=== PATIENT | female | born 1980 | race Caucasian/White ===

== ENCOUNTER 2024-06-24 08:35 | Day surgery (SDC) | payer OTHER ==
[~2024-06-24] VITALS: Ht 172.7 cm; Wt 65.8 kg
[2024-06-24] MEDS ORDERED: ALBU90OI INH (08:50)
[2024-06-24] MEDS ORDERED: FLUT1DIS8 INH (08:51)
[2024-06-24] MEDS ORDERED: TIOT18 INH (08:52)
[2024-06-24 09:05] VITALS: BP 129/102
--- NOTE | 2024-06-24 09:07 | NUR ---
TIMEOUT 0909 W/ DRY NANETTE PROCEDURE START 909 LOCAL ANESTHETIC PROCEDURE END 927 OUTPUT 650ML
[2024-06-24 10:12] LABS: Automated BF RBC Count 0.008 M/mm3 (0-0); Automated BF WBC Count 2.838 K/mm3 (0-999)
--- NOTE | 2024-06-24 10:18 | NUR ---
Discharge instructions reviewed with patient. Patient verbalizes understanding. Copy given to patient to take home.
[2024-06-24 10:31] LABS: Body Fluid WBC Count 2838 /mm3 (0-999); RBC Count, Body Fluid 8000 /mm3 (0-0)
[2024-06-24 10:37] LABS: Glucose, Body Fluid 161 mg/dL
[2024-06-24 11:31] LABS: Lactate Dehydrogenase, Body Fl 95 U/L; Protein, Body Fluid 3.9 g/dL
[2024-06-24 11:35] LABS: Albumin, Body Fluid 2.3 g/dL; Triglycerides, Body Fluid 2123 mg/dL
[2024-06-24 11:49] LABS: Total Cell Count, Body Fluid 100
[2024-06-24 11:50] LABS: Appearance, Body Fluid Cloudy (Clear)
[2024-06-24 12:06] LABS: pH, Body Fluid 8.2
== END 2024-06-24 10:17 | disposition home or self-care (01) ==
LOC: ORSCMMR 08:35 → ORD 09:00 → ORSCMMR 10:17
PROVIDERS: Student in an Organized Health Care Education/Training Program
PROC: 0W993ZX Drainage of Right Pleural Cavity, Percutaneous Approach, Diagnostic (ICD-10-PCS; principal; 2024-06-24 09:00)
DX: J90 Pleural effusion, not elsewhere classified (principal); J43.1 Panlobular emphysema; Z87.891 Personal history of nicotine dependence; Z79.899 Other long term (current) drug therapy
CPT/HCPCS: 71045; 82042; 82945; 83615; 83986; 84157; 84478; 87070; 87075; 87205; 88108; 88305; 88341; 88342; 89051

== ENCOUNTER 2024-08-25 11:52 | Day surgery (SDC) | payer OTHER ==
[~2024-08-25] VITALS: Ht 172.7 cm; Wt 65.3 kg
[2024-08-25] VITALS (20 sets, daily range): BP systolic 100–134; BP diastolic 77–112
[~2024-08-25 11:52] MED LIST: ALBU90OI INH; FLUT1DIS8 INH; TIOT18 INH
[2024-08-25] MEDS ORDERED: SIRO1 PO (12:16)
--- NOTE | 2024-08-25 12:22 | NUR ---
Ambulatory in Day Surgery. PT REPORTS HAVING COFFEE OTHERWISE NPO THIS AM, WILL DISCUSS WITH DR. History, Chart, Medications and Allergies reviewed before start of procedure.Lungs DECREASED BUT clear T/O to Auscultation. Pre-Op teaching done. Pt verbalizes understanding.
[2024-08-25] MEDS ORDERED: Lactated Ringer's 1,000 ML IV SCH (12:40)
--- NOTE | 2024-08-25 12:43 | NUR ---
REPORTS PT OK TO HAVE COFFEE THIS AM.
[2024-08-25] MEDS ORDERED: FentaNYL Citrate 50 MCG/ML 2 ML Injection IV ONE (13:05)
--- NOTE | 2024-08-25 14:04 | NUR ---
Patient up to Ambulate independently. Gait steady. Discharge instructions reviewed with patient. Patient verbalizes understanding. Copy given to patient to take home. Discharged via wheelchair to private car for ride home. Patient States Post-Procedure ride home has been arranged. PT REPORTS PAIN DOING BETTER. TOLERATING PO. BANDAID C/D/I. SITE APPEARS WNL. PT REPORTS READY TO GO HOME. PT HAD CXR EARLIER WHILE DR WAS IN ROOM. DR STATED PT COULD GO HOME WHEN SHE FELT READY TO GO HOME.
[2024-08-25 14:21] LABS: Automated BF RBC Count 0.014 M/mm3 (0-0); Automated BF WBC Count 1.878 K/mm3 (0-999)
[2024-08-25 14:30] LABS: Body Fluid WBC Count 1878 /mm3 (0-999); RBC Count, Body Fluid 14000 /mm3 (0-0)
--- NOTE | 2024-08-25 14:30 | NUR ---
08/25/24 1430 Prosper Mora History, Chart, Medications and Allergies reviewed before start of procedure.MONITOR INTACT WITH CONTINUOUS PULSE OXIMETRY, CONTINUOUS END TITAL CO2, AND INTERMITTENT BLOOD PRESSURE.3-LEAD EKG REVIEWED WITH PHYSICIAN PRIOR TO START OF PROCEDURE.
[2024-08-25 15:06] LABS: Albumin, Body Fluid 2.3 g/dL; Glucose, Body Fluid 125 mg/dL
[2024-08-25 15:16] LABS: Total Cell Count, Body Fluid 100
[2024-08-25 15:17] LABS: Color, Body Fluid Yellow (None-Yellow)
[2024-08-25 15:19] LABS: Appearance, Body Fluid Turbid (Clear)
[2024-08-25 15:55] LABS: Lactate Dehydrogenase, Body Fl 84 U/L; Protein, Body Fluid 3.8 g/dL; Triglycerides, Body Fluid 1084 mg/dL
== END 2024-08-25 14:04 | disposition home or self-care (01) ==
LOC: ORSCMMR 11:52 → ORD 12:30 → ORSCMMR 14:04
PROVIDERS: Student in an Organized Health Care Education/Training Program
PROC: 0W993ZX Drainage of Right Pleural Cavity, Percutaneous Approach, Diagnostic (ICD-10-PCS; principal; 2024-08-25 12:30)
DX: J90 Pleural effusion, not elsewhere classified (principal); R06.02 Shortness of breath; J84.81 Lymphangioleiomyomatosis; I45.6 Pre-excitation syndrome; J45.909 Unspecified asthma, uncomplicated; Z79.899 Other long term (current) drug therapy; Z87.891 Personal history of nicotine dependence
CPT/HCPCS: 71045; 82042; 82945; 83615; 84157; 84478; 87070; 87075; 87205; 88108; 88305; 89051; 93246; C1751; J3010

== ENCOUNTER 2025-02-25 06:48 | Day surgery (SDC) | payer OTHER ==
[~2025-02-25] VITALS: Ht 172.7 cm; Wt 71.1 kg
[~2025-02-25 06:48] MED LIST changes: +Lactated Ringer's 1,000 ML IV ONE; +SIRO1 PO
[2025-02-25] MEDS ORDERED: Lidocaine 1%-Epineph 1:200000 30 ML SDV ONE (06:57)
[2025-02-25] MEDS ORDERED: EPINEPhrine HCl 1 MG / ML 30ML Vial ONE (06:58)
[2025-02-25] MEDS ORDERED: Tranexamic Acid 100 ML IV ONE (07:16)
[2025-02-25] MEDS ORDERED: Lactated Ringer's 1,000 ML IV ONE (07:52)
[2025-02-25] MEDS ORDERED: Dexamethasone Sod Phos 10 MG/ML 1ML VIAL ONE (08:13)
[2025-02-25] MEDS ORDERED: SuccINYLCHOLINE Chloride 100 MG/5 ML 5MLSYR ONE (08:13)
[2025-02-25] MEDS ORDERED: Rocuronium Bromide 10 MG/ML 5ML Injection IV ONE (08:13)
[2025-02-25] MEDS ORDERED: Ondansetron HCl 2 MG / ML 2ML Vial ONE ×2 (08:13→09:39)
[2025-02-25] MEDS ORDERED: Midazolam HCl 1MG / ML 2ML Vial ONE (08:14)
[2025-02-25] MEDS ORDERED: propofoL 20 ML IV ONE (08:14)
[2025-02-25] MEDS ORDERED: FentaNYL Citrate 50 MCG/ML 2 ML Injection ONE (08:15)
--- NOTE | 2025-02-25 08:45 | NUR ---
02/25/25 0845 Zee Taylor STARTED AT [address] CARDOSO
[2025-02-25] MEDS ORDERED: Sugammadex Sodium 200 MG/2ML SDV (100 MG/ML) ONE (08:59)
[2025-02-25] MEDS ORDERED: OxyCODONE HCL 5 MG TAB ONE (09:39)
--- NOTE | 2025-02-25 09:41 | NUR ---
02/25/25 0941 Alyson Canseco PT TRANSFERRED TO RECLINER W/ MIN ASSIST. PT STATES SHE IS HAVING SINUS PAIN/PRESSURE, BUT THAT IT'S TOLERABLE AT THIS TIME. PT C/O INTERMITTENT NAUSEA, SEE MAR. PT TOLERATING SIPS OF WATER W/O COMPLAINT. VSS, ON RA. NO VISIBLE SIGNS OF DISTRESS NOTED.
[2025-02-25] MEDS ORDERED: Metoclopramide HCl 5MG / ML 2ML Vial ONE (10:01)
== END 2025-02-25 10:25 | disposition home or self-care (01) ==
LOC: ORSCSDS 06:48
DX: J34.2 Deviated nasal septum (principal); J34.3 Hypertrophy of nasal turbinates; J34.89 Other specified disorders of nose and nasal sinuses; J44.89 Other specified chronic obstructive pulmonary disease; Z79.899 Other long term (current) drug therapy; Z87.891 Personal history of nicotine dependence; F41.9 Anxiety disorder, unspecified
CPT/HCPCS: A9270; J0171; J0330; J1100; J2250; J2405; J2704; J2765; J3010; J7120